=== PATIENT | male | born 1970 | race Caucasian/White ===

== ENCOUNTER 2022-06-20 09:26 | Emergency (ER) | payer OTHER, SELFPAY ==
[2022-06-20] VITALS (14 sets, daily range): BP systolic 128–151; BP diastolic 64–86; PULSE 78–112; RESP 14–16; TEMP 36.7; O2SAT 94–99
--- NOTE | ~2022-06-20 | CT_ITS ---
EXAMINATION: CT lumbar spine wo con DATE: 06/20/2022 11:50 INDICATION: Low back pain. Lumbar stenosis. TECHNIQUE: Computed tomography (CT) of the lumbar spine was performed without intravenous contrast. A utomated exposure control and iterative reconstruction technique were employed. The dose-length produ ct was 1442.30 mGy-cm. COMPARISON: None FINDINGS: Bone alignment is normal. Vertebral body heights are normal. There is mildly decreased disc height at L3-L4. The following disc levels are specifically discussed: L1-L2: The disc does not extend beyond the endplate margin. There is mild bilateral facet joint osteo arthritis. There is no neural foraminal stenosis. There is no central canal stenosis. L2-L3: The disc does not extend beyond the endplate margin. There is mild bilateral facet joint osteo arthritis. There is no neural foraminal stenosis. There is no central canal stenosis. L3-L4: The disc is bulging. There is mild bilateral facet joint osteoarthritis. There is mild bilater al neural foraminal stenosis. There is mild central canal stenosis. L4-L5: The disc is bulging. There is mild bilateral facet joint osteoarthritis. There is mild bilater al neural foraminal stenosis. There is no central canal stenosis. L5-S1: The disc does not extend beyond the endplate margin. There is severe bilateral facet joint ost eoarthritis. There is no neural foraminal stenosis. There is no central canal stenosis. IMPRESSION: 1. Mild lumbar spondylosis. Reviewed, dictated and finalized at location A. ER CUTTER IMPRESSION: 1. Mild lumbar spondylosis.
--- NOTE | 2022-06-20 11:11 | PC.NURSE ---
Patient report given to DENISA Gallego. All questions answered and care of patient transferred.
--- NOTE | 2022-06-20 11:36 | ED.GENADULT ---
HPI - General Adult General Chief complaint: Extremity Injury, Lower Stated complaint: L leg pain Time Seen by Provider: 06/20/22 09:34 History of Present Illness HPI narrative: 51-year-old male presents for evaluation of left thigh pain. Pain is described scribed as a burning [id number] initially started 1 week ago. It is localized to the left anterolateral thigh and worsens with movement. He has been taking prednisone and gabapentin without relief. Patient had previously been diagnosed with spinal stenosis but is unsure what level of his back this was found. He is able to ambulate but with difficulty. Related Data Allergies Allergy/AdvReac Type Severity Reaction Status Date / Time No Known Allergies Allergy Verified 06/20/22 09:37 Review of Systems Review of Systems: CONSTITUTIONAL: Denies fever, chills, or sweats. EYES: Denies visual changes, redness, or discharge. ENT: Denies rhinorrhea, congestion, sore throat, or otalgia. CARDIOVASCULAR: Denies chest pain, palpitations, or edema. RESPIRATORY: Denies cough or dyspnea. GASTROINTESTINAL: Denies abdominal pain, nausea, vomiting, or diarrhea. GENITOURINARY: Denies dysuria or hematuria. SKIN: Denies rash or itching. MUSCULOSKELETAL: Denies back pain, joint pain, or myalgia. NEUROLOGIC: Denies headache, numbness, or weakness. PSYCHIATRIC: Denies anxiety or depression. [facility] Past Medical History Medical History Chronic joint pain SANTOS (generalized anxiety disorder) Gastroesophageal reflux disease Hyperlipidemia Hypertension Testicular hernia Type 2 diabetes mellitus Surgical History Surgical History History of testicular surgery History of tonsillectomy Hx of basal cell carcinoma excision [place] teeth removed Family History Family History Mother Brain aneurysm Diabetes mellitus Father Heart disease Hypertension Cerebrovascular accident High cholesterol Sibling Diabetes mellitus Other Family history of coronary artery disease Social History Social History Smoking status: Never smoker Second hand tobacco smoke exposure: No Alcohol intake: current Alcohol use details: Social Substance use: current Substance use type: marijuana Other substance usage details: Only now and then. Gender identity (if verbalized by the patient): Male Spiritual care concerns: Yes Agree to blood products: Yes Exam Narrative: GENERAL: Well-appearing, well-nourished, and in no acute distress. HEAD: Normocephalic, atraumatic. EYES: PERRLA and EOMI. ENT: Nares clear, no rhinorrhea or epistaxis. Mucous membranes moist. NECK: Supple. CHEST: Clear to auscultation. No respiratory distress. HEART: Regular rate and rhythm. No murmur heard. Normal peripheral pulses. ABDOMEN: Soft, nontender, nondistended, normal active bowel sounds. EXTREMITIES: Normal range of motion. No edema. SKIN: Warm, dry, no rash. NEURO: No focal deficits. Alert and oriented x3. PSYCH: Normal mood and affect. Course Vital Signs Vital signs: Vital Signs Temperature 98.1 F 06/20/22 09:33 Pulse Rate 112 H 06/20/22 09:33 Respiratory Rate 14 06/20/22 09:33 Blood Pressure 151/78 H 06/20/22 09:33 Pulse Oximetry 99 06/20/22 09:33 Temperature 98.1 F 06/20/22 09:33 Pulse Rate 78 06/20/22 12:51 Respiratory Rate 16 06/20/22 12:51 Blood Pressure 142/86 H 06/20/22 12:51 Pulse Oximetry 98 06/20/22 12:51 Medical Decision Making MDM Narrative Medical decision making narrative: No back pain red flags. Patient?s pain is positional and localized to back without signs of cord compression or cauda equina. Normal nuerologic exams. No fever noted and no significant risk factors for osteomyelitis or
[2022-06-20] MEDS: diazePAM (*CRX) 5 MG TABLET PO (12:31)
== END 2022-06-20 12:58 | disposition home or self-care (01) ==
PROVIDERS: Emergency Provider Emergency Medicine; PCP Family Medicine
DX: M79.652 Pain in left thigh (principal); E78.5 Hyperlipidemia, unspecified; I10 Essential (primary) hypertension; E11.9 Type 2 diabetes mellitus without complications; K21.9 Gastro-esophageal reflux disease without esophagitis; Z85.828 Personal history of other malignant neoplasm of skin; M47.816 Spondylosis without myelopathy or radiculopathy, lumbar region; Z79.84 Long term (current) use of oral hypoglycemic drugs; Z79.85 Long-term (current) use of injectable non-insulin antidiabetic drugs
CPT/HCPCS: 72131; 99284; A9270

== ENCOUNTER 2024-02-10 08:26 | Day surgery (SDC) | payer OTHER, SELFPAY ==
[2024-01-05 14:12] VITALS: BMI 33.9
[2024-01-26 09:46] VITALS: BMI 35.2
--- NOTE | 2024-02-09 15:26 | PM.HPGS ---
History of Present Illness History of Present Illness Consent: Risks, benefits, and alternatives have been discussed and questions answered. Patient agrees to proceed with procedure. Chief complaint: Neoplasm screening Narrative: Sadiq Butler is a 53 year old male Colonoscopy with possible biopsy or polypectomy or cautery or injection of substances. Review of Systems Review of Systems: All systems reviewed & are unremarkable except as noted in HPI and below PMFSH Past Medical History Medical History Chronic joint pain Diabetic neuropathy associated with type 2 diabetes mellitus SANTOS (generalized anxiety disorder) Gastroesophageal reflux disease Hyperlipidemia Hypertension Peripheral neuropathy Spondylosis of lumbar spine Testicular hernia Type 2 diabetes mellitus Surgical History Surgical History History of testicular surgery History of tonsillectomy Hx of basal cell carcinoma excision [place] teeth removed Family History Family History Mother Brain aneurysm Diabetes mellitus Father Heart disease Hypertension Cerebrovascular accident High cholesterol Sibling Diabetes mellitus Other Family history of coronary artery disease Social History Social History Smoking status: Never smoker Second hand tobacco smoke exposure: No Alcohol intake: current Alcohol use details: Social Substance use: current Substance use type: marijuana Other substance usage details: daily Lack of Transportation: No Lack of Food: Never True Current Housing: I Have Housing Concerned About Future Housing: No Difficulty Paying Gas/Electric Bills: No Difficulty Paying for Meds: No Currently Unemployed: No Education: High School Diploma/GED Difficulty w/ Childcare or Family Care: No Living arrangements: with family Occupation/Education: occupation Gender identity (if verbalized by the patient): Male Sexual Orientation (if Verbalized by the Patient): Straight or Heterosexual Spiritual care concerns: No Agree to blood products: Yes Meds Home Medications and Allergies Home Medications Medication Instructions Recorded Confirmed Type blood-glucose meter,continuous #1 ea 07/30/21 12/29/23 Rx (Dexcom G6 Manager Intranet) blood-glucose sensor (Dexcom G6 #3 ea 05/19/22 12/29/23 Rx Sensor device) blood sugar diagnostic (OneTouch #100 strips 03/28/23 12/29/23 Rx Verio test strips) lancets #100 ea 03/28/23 12/29/23 Rx pantoprazole 40 mg tablet,delayed 40 mg PO DAILY #90 tabs 08/20/23 02/10/24 Rx release blood-glucose transmitter (Dexcom #1 ea 09/15/23 12/29/23 Rx G6 Transmitter device) citalopram 20 mg tablet See Rx Instructions .Route 09/15/23 02/10/24 Rx .COMPLEX #90 tabs dapagliflozin propanediol 10 mg 10 mg PO DAILY #90 tabs 09/18/23 02/10/24 Rx tablet (Farxiga) icosapent ethyl 1 gram capsule 2 g PO BID #360 caps 12/22/23 02/10/24 Rx (Vascepa) metformin 500 mg tablet,extended 2,000 mg PO QPM #360 tabs 12/22/23 02/10/24 Rx release 24 hr acetaminophen 300 mg-codeine 30 mg 1 tablet PO HS pain 01/26/24 02/10/24 History tablet ezetimibe 10 mg tablet 10 mg PO DAILY 01/26/24 02/10/24 History glipizide 10 mg tablet, extended 10 mg PO DAILY 01/26/24 02/10/24 History release 24 hr irbesartan 300 mg tablet 300 mg PO DAILY 01/26/24 02/10/24 History rosuvastatin 40 mg tablet 40 mg PO DAILY 01/26/24 02/10/24 History tirzepatide 2.5 mg/0.5 mL 2.5 mg subcut WEEKLY 01/26/24 02/10/24 History subcutaneous pen injector (Chanda) Allergies Allergy/AdvReac Type Severity Reaction Status Date / Time No Known Allergies Allergy Verified 02/10/24 08:38 Exam Resp: Auscultation: clear to auscultation bilaterally Cardio:
--- NOTE | 2024-02-10 06:44 | WPDANESEPPF ---
Anes - Initial Pre Proc Eval Procedure: Operation Date: 02/10/24 10:00 Proposed Procedures p Screening Colonoscopy - Jagdish Patrick MD Date/Time: 02/10/24 06:44 Surgeon: Jagdish Patrick MD Pre Op Diagnosis: Neoplasm screening Patient Data Age: 53 Gender: M Height: 1.83 m Weight: 118 kg Allergies Allergy/AdvReac Type Severity Reaction Status Date / Time No Known Allergies Allergy Verified 02/10/24 08:38 Home Medications Medication Instructions Recorded Confirmed Type blood-glucose meter,continuous #1 ea 07/30/21 12/29/23 Rx (Dexcom G6 Converter Supervisor) blood-glucose sensor (Dexcom G6 #3 ea 05/19/22 12/29/23 Rx Sensor device) blood sugar diagnostic (OneTouch #100 strips 03/28/23 12/29/23 Rx Verio test strips) lancets #100 ea 03/28/23 12/29/23 Rx pantoprazole 40 mg tablet,delayed 40 mg PO DAILY #90 tabs 08/20/23 02/10/24 Rx release blood-glucose transmitter (Dexcom #1 ea 09/15/23 12/29/23 Rx G6 Transmitter device) citalopram 20 mg tablet See Rx Instructions .Route 09/15/23 02/10/24 Rx .COMPLEX #90 tabs dapagliflozin propanediol 10 mg 10 mg PO DAILY #90 tabs 09/18/23 02/10/24 Rx tablet (Farxiga) icosapent ethyl 1 gram capsule 2 g PO BID #360 caps 12/22/23 02/10/24 Rx (Vascepa) metformin 500 mg tablet,extended 2,000 mg PO QPM #360 tabs 12/22/23 02/10/24 Rx release 24 hr acetaminophen 300 mg-codeine 30 mg 1 tablet PO HS pain 01/26/24 02/10/24 History tablet ezetimibe 10 mg tablet 10 mg PO DAILY 01/26/24 02/10/24 History glipizide 10 mg tablet, extended 10 mg PO DAILY 01/26/24 02/10/24 History release 24 hr irbesartan 300 mg tablet 300 mg PO DAILY 01/26/24 02/10/24 History rosuvastatin 40 mg tablet 40 mg PO DAILY 01/26/24 02/10/24 History tirzepatide 2.5 mg/0.5 mL 2.5 mg subcut WEEKLY 01/26/24 02/10/24 History subcutaneous pen injector (Chanda) Patient hx anesthesia problems: none Family hx anesthesia problems: none Results Review: All pre-operative results and documents have been reviewed as part of the pre-operative evaluation. [facility] Past Medical History Medical History Chronic joint pain Diabetic neuropathy associated with type 2 diabetes mellitus SANTOS (generalized anxiety disorder) Gastroesophageal reflux disease Hyperlipidemia Hypertension Peripheral neuropathy Spondylosis of lumbar spine Testicular hernia Type 2 diabetes mellitus Surgical History Surgical History History of testicular surgery History of tonsillectomy Hx of basal cell carcinoma excision [place] teeth removed Family History Family History Mother Brain aneurysm Diabetes mellitus Father Heart disease Hypertension Cerebrovascular accident High cholesterol Sibling Diabetes mellitus Other Family history of coronary artery disease Social History Social History Smoking status: Never smoker Second hand tobacco smoke exposure: No Alcohol intake: current Alcohol use details: Social Substance use: current Substance use type: marijuana Other substance usage details: Only now and then. Last use: daily Lack of Transportation: No Lack of Food: Never True Current Housing: I Have Housing Concerned About Future Housing: No Difficulty Paying Gas/Electric Bills: No Difficulty Paying for Meds: No Currently Unemployed: No Education: High School Diploma/GED Difficulty w/ Childcare or Family Care: No Living arrangements: with family Occupation/Education: occupation Gender identity (if verbalized by the patient): Male Sexual Orientation (if Verbalized by the Patient): Straight or Heterosexual Spiritual care concerns: No Agree to blood products: Yes Anes - Eval Final PreProcedure Day of Procedure
[2024-02-10 08:41] VITALS: BP 145/97; PULSE 107; RESP 16; TEMP 36.3; O2SAT 98
[2024-02-10] MEDS: LACTATED RINGERS 1,000 ML 150 ML IV CONT (08:42)
[2024-02-10 08:49] LABS: Glucose Point of Care 160 mg/dl (65-105)
[2024-02-10 09:27] VITALS: BP 106/73; PULSE 101; RESP 16; O2SAT 97
[2024-02-10 09:40] VITALS: BP 126/85; PULSE 92; RESP 16; O2SAT 99
[2024-02-10 09:50] VITALS: BP 144/91; PULSE 91; RESP 15; O2SAT 97
--- NOTE | 2024-02-10 11:11 | WPDANESPN ---
Anes - Prog Note Post-Op Date/Time: 02/10/24 11:11 Cardiovascular status: normal Respiratory status: normal Airway patency: baseline Mental status: baseline Post-Op hydration status: normal Vital Signs: Last Vital Signs Temp 36.3 C L 02/10/24 08:41 Pulse 91 02/10/24 09:50 Resp 15 02/10/24 09:50 BP 144/91 H 02/10/24 09:50 Pulse Ox 97 02/10/24 09:50 O2 Del Method Room Air 02/10/24 09:50 Pain Score (VAS): 0 I/O: Intake & Output 02/09/24 02/10/24 02/10/24 23:59 07:59 15:59 Intake Total 500 Balance 500 02/10/24 08:45 POC Capillary Glucose 160 H Post-procedural complaints: none Patient Feedback: Patient satisfied with anesthetic care. Other Findings: Patient vital signs back to baseline. Patient denies nausea and vomiting. Patient's pain under control. Patient OK for discharge.
== END 2024-02-10 10:07 | disposition home or self-care (01) ==
PROVIDERS: PCP Family Medicine; Visit Provider Internal Medicine Gastroenterology
PROC: 0DJD8ZZ Inspection of Lower Intestinal Tract, Via Natural or Artificial Opening Endoscopic (ICD-10-PCS; CPT 45378; principal; 2024-02-10 10:00)
DX: Z12.11 Encounter for screening for malignant neoplasm of colon (principal); D12.2 Benign neoplasm of ascending colon
CPT/HCPCS: 45385

== ENCOUNTER 2024-02-10 08:31 | Outpatient (NON) | payer OTHER, SELFPAY | END 2024-02-10 08:32 | disposition home or self-care (01) | LOC: ANHLAB 02-11 08:32 | PROVIDERS: PCP Family Medicine; Visit Provider Internal Medicine Gastroenterology | DX: Z12.11 Encounter for screening for malignant neoplasm of colon (principal) | CPT/HCPCS: 88305 ==

== ENCOUNTER 2024-03-04 12:06 | Outpatient (CLI) | payer OTHER, SELFPAY ==
[2024-03-04 13:02] LABS: Influenza A QL RT-PCR Negative (Negative); Influenza B QL RT-PCR Negative (Negative); RSV RNA, RT-PCR Negative (Negative); SARS-CoV-2 RNA PCR Negative (Negative)
== END 2024-03-04 12:07 | disposition home or self-care (01) ==
LOC: ANHLAB 12:07
PROVIDERS: PCP Family Medicine; Visit Provider Family Medicine
DX: J06.9 Acute upper respiratory infection, unspecified (principal); Z20.822 Contact with and (suspected) exposure to COVID-19
CPT/HCPCS: 87637

== ENCOUNTER 2024-08-10 09:03 | Outpatient (CLI) | payer OTHER, SELFPAY ==
--- OUTSIDE RECORDS SUMMARY | 2024-08-10 09:36 | XMS_ITS | Clinical Summary ---
Author Organization [facility] Address [address] [place] [address] Care Team Providers Care Ordnance Equipment Worker Name Role Phone Katharine Urrutia MD Primary Care Provider [phone] Allergies No known active allergies Medications citalopram (CeleXA) 20 mg tablet Take 20 mg by mouth daily 11/22/2015 Active Jardiance 25 mg tablet Take 25 mg by mouth daily 11/30/[address] (NexIUM) 40 mg capsule Take 40 mg by mouth daily 11/22/2015 Active ezetimibe (ZETIA) 10 mg tablet Take 10 mg by mouth daily 11/22/2015 Active glipiZIDE XL (GLUCOTROL XL) 10 mg 24 hr tablet 12/06/2020 Active irbesartan (AVAPRO) 300 mg tablet Take 300 mg by mouth daily 11/30/2020 Active metFORMIN XR (GLUCOPHAGE XR) 500 mg 24 hr tablet TAKE 4 TABLETS BY MOUTH EVERY EVENING WITH MEAL 11/30/[address] (PROTONIX) 40 mg EC tablet Take 40 mg by mouth daily 11/30/2020 Active phentermine (ADIPEX-P) 37.5 mg tablet Take 37.5 mg by mouth daily 12/14/2020 Active rosuvastatin (CRESTOR) 40 mg tablet Take 40 mg by mouth daily 11/30/2020 Active simvastatin (ZOCOR) 40 mg tablet TAKE ONE TABLET BY MOUTH EVERY EVENING 11/22/2015 Active topiramate (TOPAMAX) 25 mg tablet Take 25 mg by mouth daily 12/13/2020 Active acetaminophen-c odeine (TYLENOL with CODEINE #3) 300-30 mg per tablet Take 1 tablet by mouth every 4 (four) hours as needed for pain Active Active Problems Problem Noted Date Diagnosed Date Skin lesion 01/04/2021 Assessment & Plan (01/04/2021 11:54 AM CDT): We will set the patient up for excision of the basal cell carcinoma from the left lower leg. We discussed the biggest risk for his surgery is wound breakdown given the paucity of skin over the anterior quintana. He is in understanding. History of basal cell carcinoma excision 021 Overview (01/04/2021): Added automatically from request for surgery [id number] Assessment & Plan (01/25/2021 9:37 AM CDT): Surgical margins all negative. The 2 stay sutures were removed. Patient still has Steri-Strips in place a will fall off in another week or so. No submerging incisions for 2 weeks. No strenuous activities with the left leg for another 2 weeks as well. He will call us back with any further questions or concerns. Immunizations Name Administration Dates Next Due Pfizer SARS-CoV-2 Monovalent Vaccination (12+ Yrs) PURPLE 10/05/2020,09/07/2020 Surgical History Surgery Date Site/Laterality Comments TONSILLECTOMY HERNIA REPAIR testicular hernia Medical History Medical History Date Comments Type 2 diabetes mellitus (HCC) Hypertension Social History Tobacco Use Types Packs/Day Years Used Date Smoking Tobacco: Never Smokeless Tobacco: Never AUDIT-C Answer Date Recorded Q1: How often do you have a drink containing alc ohol? 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 Gender Identity Male 01/02/2021 3:45 PM CDT Sexual Orientation Gómez 01/02/2021 3: 45 PM CDT Obstetrics History Last Filed Vital Signs Vital Sign Reading Time Taken Comments Blood Pressure 134/86 01/25/2021 9:12 AM CDT Pulse 100 01/25/2021 9:12 AM CDT Temperature 35.8 ??C (96.4 ??F) 01/25/2021 9:12 AM CD T Respiratory Rate 18 01/15/2021 12:4 5 PM CDT Oxygen Saturation 98% 01/25/2021 9:12 AM CDT Inhaled Oxygen Concentration - - Weight 111.6 kg (246 lb 1.6 oz) 01/25/2021 9:12 AM CDT Height 182.9 cm (6') 01/25/2021 9:12 AM CDT Body Mass Index 33.38 01/25/2021 9:12 AM CDT Plan of Treatment Health Maintenance Due Date Last Done Comments Colon Cancer Screening-Colonoscopy 1970 Depression Screening 1970 Hepatitis C Screening 1970 Prostate Cancer Screening-PSA 1970 Hepatitis B Screening 1988 Regular Well Visit/Exam 18-64 1988 Zoster Vaccine (1 of 2) 2020 DTaP/Tdap/Td Vaccine (3 - Td or Tdap) 07/07/2022 07/07/2012, 04/03/2012, 01/07/2007 Covid-19 Vaccine (3 - season) 2024 10/05/2020, 09/07/2020 Influenza Vaccine (#1) 2024 5, 05/21/2014, 07/02/2013, Additional history exists Pneumococcal vaccine <65 Aged Out No longer eligible based on patient's age to [place] [address] [facility] [place] [facility] [place] [address] [facility] [place] [address] Care Teams Ordnance Equipment Worker Relationship Specialty Start Date End Date Katharine Urrutia MD PCP - General Family Medicine 12/06/20
--- OUTSIDE RECORDS SUMMARY | 2024-08-10 09:36 | XMS_ITS | Referral Summary ---
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
--- NOTE | 2024-08-10 11:00 | NEURO_ITS ---
Impression: # Complains of numbness of hands. longterm diabetic. ? # Normal Nerve Conduction Study. ? # No Carpal Tunnel Syndrome or ulnar neuropathy. ? # Could be related to small fiber neuropathy. ? # Clinical correlation recommended. Nerve Conduction Studies Anti Sensory Summary Table ?Stim Site NR Peak (ms) P-T Amp (?V) Site1 Site2 Delta-P (ms) Dist (cm) Josh (m/s) Left Median Anti Sensory (2-3nd Digit) Wrist ? 3.1 30.1 Wrist 2-3nd Digit 3.1 14.0 45 Wrist ? 3.1 18.0 Wrist 2-3nd Digit 3.1 14.0 45 Right Median Anti Sensory (2-3nd Digit) Wrist ? 3.4 21.3 Wrist 2-3nd Digit 3.4 14.0 41 Wrist ? 3.6 17.3 Wrist 2-3nd Digit 3.4 14.0 41 Left Radial Anti Sensory (Base 1st Digit) Wrist ? 2.1 14.1 Wrist Base 1st Digit 2.1 0.0 Right Radial Anti Sensory (Base 1st Digit) Wrist ? 2.5 9.9 Wrist Base 1st Digit 2.5 0.0 Left Ulnar Anti Sensory (5th Digit) Wrist ? 2.5 17.0 Wrist 5th Digit 2.5 14.0 56 Right Ulnar Anti Sensory (5th Digit) Wrist ? 2.7 25.6 Wrist 5th Digit 2.7 14.0 52 Motor Summary Table ?Stim Site NR Onset (ms) O-P Amp (mV) Site1 Site2 Delta-0 (ms) Dist (cm) Josh (m/s) Left Median Motor (Abd Poll Brev) Wrist ? 3.4 2.6 Elbow Wrist 5.7 32.0 56 Elbow ? 9.1 0.9 Right Median Motor (Abd Poll Brev) Wrist ? 3.4 1.9 Elbow Wrist 5.5 29.0 53 Elbow ? 8.9 2.1 Left Ulnar Motor (Abd Dig Minimi) Wrist ? 2.6 5.5 A Elbow Wrist 5.4 32.0 59 A Elbow ? 8.0 4.3 Right Ulnar Motor (Abd Dig Minimi) Wrist ? 3.2 4.6 A Elbow Wrist 5.6 31.0 55 A Elbow ? 8.8 3.2 F Wave Studies ?NR F-Lat (ms) L-R F-Lat (ms) Left Median (Mrkrs) (Abd Poll Brev) ? 31.06 0.02 Right Median (Mrkrs) (Abd Poll Brev) ? 31.08 0.02 Left Ulnar (Mrkrs) (Abd Dig Min) ? 30.35 2.44 Right Ulnar (Mrkrs) (Abd Dig Min) ? 27.92 2.44 EMG ?Side Muscle Nerve Root Ins Act Fibs Amp Dur Recrt Comment Right 1stDorInt Ulnar C8-T1 Nml Nml Nml Nml Nml Right Ext Indicis Radial (Post Int) C7-8 Nml Nml Nml Nml Nml Right Ext Digitorum Radial (Post Int) C7-8 Nml Nml Nml Nml Nml Right BrachioRad Radial C5-6 Nml Nml Nml Nml Nml Right PronatorTeres Median C6-7 Nml Nml Nml Nml Nml Right Abd Poll Brev Median C8-T1 Nml Nml Nml Nml Nml Right ABD Dig Min Ulnar C8-T1 Nml Nml Nml Nml Nml Left 1stDorInt Ulnar C8-T1 Nml Nml Nml Nml Nml Left Ext Indicis Radial (Post Int) C7-8 Nml Nml Nml Nml Nml Left Ext Digitorum Radial (Post Int) C7-8 Nml Nml Nml Nml Nml Left BrachioRad Radial C5-6 Nml Nml Nml Nml Nml Left PronatorTeres Median C6-7 Nml Nml Nml Nml Nml Left Abd Poll Brev Median C8-T1 Nml Nml Nml Nml Nml Left ABD Dig Min Ulnar C8-T1 Nml Nml Nml Nml Nml ?? MTDD
== END 2024-08-10 09:04 | disposition home or self-care (01) ==
PROVIDERS: PCP Family Medicine; Visit Provider Family Medicine
DX: R20.2 Paresthesia of skin (principal); M79.601 Pain in right arm; M79.602 Pain in left arm
CPT/HCPCS: 95886; 95911

== ENCOUNTER 2024-09-07 10:32 | Outpatient (CLI) | payer OTHER, SELFPAY | END 2024-09-07 10:33 | disposition home or self-care (01) | PROVIDERS: PCP Family Medicine; Visit Provider Plastic Surgery | DX: M65.4 Radial styloid tenosynovitis [de Quervain] (principal) | CPT/HCPCS: 73130 ==

== ENCOUNTER 2024-11-22 09:30 | Outpatient (CLI) | payer OTHER, SELFPAY ==
--- NOTE | 2024-11-22 09:42 | ECG_ITS ---
Test Date: 2024-11-22 09:58:57 Measurements Intervals [place] Rate: 85 P: 53 LA: 146 QRS: 3 QRSD: 85 T: 29 QT: 384 QTc: 457 Interpretive Statements SINUS RHYTHM No previous ECG available for comparison Electronically Signed On 11-22-2024 10:55:02 CDT by Kory Key M.D.
--- OUTSIDE RECORDS SUMMARY | 2024-11-22 09:56 | XMS_ITS | Clinical Summary ---
Author Organization [facility] Address [address] [place] [address] Care Team Providers Care Swedish Masseuse Name Role Phone Katharine Urrutia MD Primary Care Provider [phone] Allergies No known active allergies Medications citalopram [...] (01/04/2021): Added automatically from request for surgery [id number] Assessment & Plan (01/25/2021 9:37 AM CDT): Surgical margins all negative. The 2 stay sutures were removed. Patient still has Steri-Strips in place a will fall off in another week or so. No submerging incisions for 2 weeks. No strenuous activities with the left leg for another 2 weeks as well. He will call us back with any further questions or concerns. 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 Gender Identity Male 01/02/2021 3:45 PM CDT Sexual Orientation Gómez 01/02/2021 3: 45 PM CDT Obstetrics History Last Filed Vital Signs Vital Sign Reading Time Taken Comments Blood Pressure 134/86 01/25/2021 9:12 AM CDT Pulse 100 01/25/2021 9:12 AM CDT Temperature 35.8 C (96.4 F) 01/25/2021 9:12 AM CDT Respiratory Rate 18 01/15/2021 12:4 5 PM [...] patient's age to complete [place] [address] [facility] [place] [facility] [place] [address] [place] [address] [facility] [place] [address] Care Teams Swedish Masseuse Relationship Specialty Start Date End Date Katharine Urrutia MD PCP - General Family Medicine 12/06/20
--- OUTSIDE RECORDS SUMMARY | 2024-11-22 09:56 | XMS_ITS | Referral Summary ---
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
[2024-11-22 10:00] LABS: Anion Gap 10 mmol/L (4-12); Blood Urea Nitrogen 10 mg/dL (9-20); Calcium 8.9 mg/dL (8.4-10.2); Carbon Dioxide 25 mmol/L (22-30); Chloride 104 mmol/L (98-107); Estimated Glomerular Filt Rate > 60; Glucose 158 mg/dL (65-110); Potassium 4.3 mmol/L (3.4-5.0); Sodium 139 mmol/L (137-145)
== END 2024-11-22 09:31 | disposition home or self-care (01) ==
LOC: ANHLAB 09:32
PROVIDERS: PCP Family Medicine; Visit Provider Anesthesiology
DX: E11.9 Type 2 diabetes mellitus without complications (principal); Z01.818 Encounter for other preprocedural examination; I10 Essential (primary) hypertension; E78.5 Hyperlipidemia, unspecified
CPT/HCPCS: 36415; 80048; 93005

== ENCOUNTER 2024-11-25 09:10 | Day surgery (SDC) | payer OTHER, SELFPAY ==
[2024-11-08 09:08] VITALS: BMI 33.5
--- NOTE | 2024-11-25 06:59 | PM.HPGS ---
History of Present Illness History of Present Illness Chief complaint: LT Cubital Tunnel Syndrome, de Quervains Tenosyno. Narrative: Patient seen and examined in pre-operative holding area. No interval change in medical history or symptoms. Patient recalls previous discussion of benefits and alternatives to procedure. Continues to desire to proceed with left cubital tunnel release and left first extensor compartment release. Reviewed procedure, post-op expectations and risks including but not limited to bleeding, infection, injury to tendon/nerve/vessel, decreased hand function, stiffness, RSD, no change or worsening of symptoms. I discussed the possible use of assistants and their participation in the case. Patient stated understanding and signed the consent form wishing to proceed. Review of Systems Review of Systems: All systems reviewed & are unremarkable except as noted in HPI and below PMFSH Past Medical History Medical History Lt arm numbness Numbness and tingling in left hand Diabetic neuropathy associated with type 2 diabetes mellitus Spondylosis of lumbar spine Peripheral neuropathy Chronic joint pain SANTOS (generalized anxiety disorder) Gastroesophageal reflux disease Hyperlipidemia Hypertension Type 2 diabetes mellitus Testicular hernia Surgical History Surgical History Hx of basal cell carcinoma excision History of testicular surgery History of tonsillectomy [place] teeth removed Family History Family History Mother Brain aneurysm Diabetes mellitus Father Heart disease Hypertension Cerebrovascular accident High cholesterol Sibling Diabetes mellitus Other Family history of coronary artery disease Social History Social History Smoking status: Never smoker Second hand tobacco smoke exposure: No Alcohol intake: current Drinks per week: 2 Alcohol use details: Social Substance use: current Substance use type: marijuana Other substance usage details: daily Lack of Transportation: No Lack of Food: Never True Current Housing: I Have Housing Concerned About Future Housing: No Difficulty Paying Gas/Electric Bills: No Difficulty Paying for Meds: No Currently Unemployed: No Education: High School Diploma/GED Difficulty w/ Childcare or Family Care: No Living arrangements: with family Occupation/Education: occupation Gender identity (if verbalized by the patient): Male Sexual Orientation (if Verbalized by the Patient): Straight or Heterosexual Spiritual care concerns: No Agree to blood products: Yes Meds Home Medications and Allergies Home Medications Medication Instructions Recorded Confirmed Type blood-glucose,packaging specialist,cont #1 ea 07/30/21 06/15/24 Rx (Dexcom G6 Video Poker Floorman) blood sugar diagnostic (OneTouch #100 strips 03/28/23 06/15/24 Rx Verio test strips) lancets #100 ea 03/28/23 06/15/24 Rx blood-glucose transmitter (Dexcom #1 ea 09/15/23 06/15/24 Rx G6 Transmitter device) glipizide 10 mg tablet, extended 10 mg PO DAILY #90 tabs 04/09/24 11/25/24 Rx release 24 hr rosuvastatin 40 mg tablet 40 mg PO DAILY #90 tabs 05/18/24 11/25/24 Rx ezetimibe 10 mg tablet 10 mg PO DAILY #90 tabs 06/26/24 11/25/24 Rx metformin 500 mg tablet,extended 2,000 mg (4 x 500 mg) PO QPM #360 06/26/24 11/25/24 Rx release 24 hr tabs icosapent ethyl 1 gram capsule 2 g (2 x 1 gram) PO BID #360 caps 07/01/24 11/25/24 Rx (Vascepa) blood-glucose sensor (Dexcom G6 #3 ea 08/31/24 Rx Sensor device) citalopram 20 mg tablet See Rx Instructions .Route 09/08/24 11/25/24 Rx .COMPLEX #90 tabs dapagliflozin propanediol 10 mg 10 mg PO DAILY #90 tabs 09/08/24 11/25/24 Rx tablet (Farxiga) irbesartan 300 mg tablet 300 mg PO DAILY #90 tabs 09/08/24 11/25/24 Rx pantoprazole 40 mg tablet,delayed 40 mg PO DAILY #90 tabs 09/08/24 11/25/24 Rx release acetaminophen 300 mg-codeine 30 mg 1 tablet PO Q6H PRN pain #90 tabs 10/08/24 11/25/24 Rx tablet tirzepatide 10 mg/0.5 mL 10 mg (0.5 mL) subcut WEEKLY #2 mL 11/09/24 11/25/24 Rx subcutaneous pen injector (Chanda) Allergies Allergy/AdvReac Type Severity Reaction Status Date / Time No Known Allergies Allergy Verified 11/25/24 09:25 Exam Narrative: unchanged Assessment and Plan Assessment and plan (1) De Quervain's tenosynovitis, left: Code(s): M65.4 - Radial styloid tenosynovitis [de Quervain] Status: Acute Assessment and Plan: cont as above (2) Entrapment of left ulnar nerve at elbow: Code(s): G56.22 - Lesion of ulnar nerve, left upper limb Status: Acute
--- NOTE | 2024-11-25 07:00 | W.PM.PROC2 ---
Procedure Note - Detailed Date of Procedure 11/25/24 Pre-op Diagnosis LT Cubital Tunnel Syndrome, leftde Quervains Tenosynovitis Post-op Diagnosis Same Procedure Performed left CuTR and left first extensor compartment release Surgeon Zuhair Bradford MD Demonstrator Sales curly lugo pa-c Anesthesia MAC Description of Procedure INFORMED CONSENT:The patient was seen and examined and marked in the pre-op area. The patient signed the consent form. PROCEDURE IN DETAIL: The patient taken back to OR on the stretcher in supine position. Time out performed with anesthesia, surgeon and staff agreeing on patient's name site and surgery to be performed SCDs were placed on the lower extremities and inflated A tourniquet was placed on {left} upper extremity and antibiotics given IV After anesthesia administered sedation I injected {10}cc 1%lido with epi and 0.5% marcaine plain at the operative sites The {left upper extremity} was prepped and draped in sterile fashion the {left upper extremity} was exsanguinated with Esmarch bandage and tourniquet inflated to 250mmHg I proceeded with making a longitudinal incision between two heads for flexor carpi ulnaris at end of {left} cubital tunnel with 15 blade scalpel. Littler scissors were used to spread down to FCU fascia. An incision was made in FCU fascia and ulnar nerve identified exiting cubital tunnel. I proceeded with complete retrograde release of the cubital tunnel including 7cm proximal for the intermuscular septum. The nerve appeared healthy with visible vaso nervorum. There was no subluxation on full elbow range of motion. I irrigated with normal saline and closure with 3-0 Vicryl for dermis and 4-0 Monocryl for subcuticular closure. Next I proceeded with making a longitudinal incision over the left 1st extensor compartment through skin and dermis with a 15 blade scalpel. Littler scissors were used to spread through subcutaneous tissue down to the extensor tendon sheath. The dorsal radial sensory nerve was identified and protected throughout the procedure. I used a 15 blade scalpel to make initial incision on the dorsal aspect of the 1st extensor compartment. Littler scissors were used to spread above it and below it proximally and distally completing the transection entirely. The APLwas noted to be within a separate subsheath which was also released completed. The APL and EPB tendons were inspected and free of masses and synovitis. I irrigated with normal saline and closure with 3-0 Vicryl for dermis and 4-0 Monocryl for subcuticular closure. The incisions were covered with Dermabond then 4x4s, yuko, and a posterior elbow splint for patient safety, security and comfort and secured with padmini bandages after the tourniquet was let down noting the hand was warm and well perfused. Patient awaken from anesthesia and transferred to recovery in stable condition Complications - none EBL- 1cc Disposition - home in stable conditions nilesh lugo pa-c was essential for positioning, retraction, closure and dressing placement G Billing Surgery - Charge Forward: Surgery Billing ([id number] same for nilesh wiseman )
[2024-11-25 09:27] VITALS: BP 134/86; PULSE 90; RESP 18; TEMP 36.4; O2SAT 98
[2024-11-25] MEDS: LACTATED RINGERS 1,000 ML 30 ML IV CONT (09:31)
[2024-11-25 09:40] LABS: Glucose Point of Care 153 mg/dl (65-105)
--- NOTE | 2024-11-25 10:17 | WPDANESEPPF ---
Anes - Initial Pre Proc Eval Procedure: Operation Date: 11/25/24 11:15 Proposed Procedures p Left Cubital Tunnel Release - Zuhair Bradford MD s Left First Extensor Compartment Release - Zuhair Bradford MD Date/Time: 11/25/24 10:17 Surgeon: Zuhair Bradford MD Pre Op Diagnosis: LT Cubital Tunnel Syndrome, de Quervains Tenosyno. Patient Data Age: 54 Gender: M Height: 1.83 m Weight: 112.3 kg Last Vital Signs Temp 36.4 C L 11/25/24 09:27 Pulse 90 11/25/24 09:27 Resp 18 11/25/24 09:27 BP 134/86 11/25/24 09:27 Pulse Ox 98 11/25/24 09:27 O2 Del Method Room Air 11/25/24 09:27 Allergies Allergy/AdvReac Type Severity Reaction Status Date / Time No Known Allergies Allergy Verified 11/25/24 09:25 Home Medications Medication Instructions Recorded Confirmed Type blood-glucose,warehouse receiver,cont #1 ea 07/30/21 06/15/24 Rx (Dexcom G6 Engine Test Cell Technician) blood sugar diagnostic (OneTouch #100 strips 03/28/23 06/15/24 Rx Verio test strips) lancets #100 ea 03/28/23 06/15/24 Rx blood-glucose transmitter (Dexcom #1 ea 09/15/23 06/15/24 Rx G6 Transmitter device) glipizide 10 mg tablet, extended 10 mg PO DAILY #90 tabs 04/09/24 11/25/24 Rx release 24 hr rosuvastatin 40 mg tablet 40 mg PO DAILY #90 tabs 05/18/24 11/25/24 Rx ezetimibe 10 mg tablet 10 mg PO DAILY #90 tabs 06/26/24 11/25/24 Rx metformin 500 mg tablet,extended 2,000 mg (4 x 500 mg) PO QPM #360 06/26/24 11/25/24 Rx release 24 hr tabs icosapent ethyl 1 gram capsule 2 g (2 x 1 gram) PO BID #360 caps 07/01/24 11/25/24 Rx (Vascepa) blood-glucose sensor (Dexcom G6 #3 ea 08/31/24 Rx Sensor device) citalopram 20 mg tablet See Rx Instructions .Route 09/08/24 11/25/24 Rx .COMPLEX #90 tabs dapagliflozin propanediol 10 mg 10 mg PO DAILY #90 tabs 09/08/24 11/25/24 Rx tablet (Farxiga) irbesartan 300 mg tablet 300 mg PO DAILY #90 tabs 09/08/24 11/25/24 Rx pantoprazole 40 mg tablet,delayed 40 mg PO DAILY #90 tabs 09/08/24 11/25/24 Rx release acetaminophen 300 mg-codeine 30 mg 1 tablet PO Q6H PRN pain #90 tabs 10/08/24 11/25/24 Rx tablet tirzepatide 10 mg/0.5 mL 10 mg (0.5 mL) subcut WEEKLY #2 mL 11/09/24 11/25/24 Rx subcutaneous pen injector (Mounjaro) Laboratory Tests 11/25/24 09:36 POC Capillary Glucose 153 H mg/dl (65-105) Patient hx anesthesia problems: none Family hx anesthesia problems: none Results Review: All pre-operative results and documents have been reviewed as part of the pre-operative evaluation. [facility] Past Medical History Medical History Lt arm numbness Numbness and tingling in left hand Diabetic neuropathy associated with type 2 diabetes mellitus Spondylosis of lumbar spine Peripheral neuropathy Chronic joint pain SANTOS (generalized anxiety disorder) Gastroesophageal reflux disease Hyperlipidemia Hypertension Type 2 diabetes mellitus Testicular hernia Surgical History Surgical History Hx of basal cell carcinoma excision History of testicular surgery History of tonsillectomy [place] teeth removed Family History Family History Mother Brain aneurysm Diabetes mellitus Father Heart disease Hypertension Cerebrovascular accident High cholesterol Sibling Diabetes mellitus Other Family history of coronary artery disease Social History Social History Smoking status: Never smoker Second hand tobacco smoke exposure: No Alcohol intake: current Drinks per week: 2 Alcohol use details: Social Substance use: current Substance use type: marijuana Other substance usage details: daily Lack of Transportation: No Lack of Food: Never True Current Housing: I Have Housing Concerned About Future Housing: No Difficulty Paying Gas/Electric Bills: No Difficulty Paying for Meds: No Currently Unemployed: No Education: High School Diploma/GED Difficulty w/ Childcare or Family Care: No Living arrangements: with family Occupation/Education: occupation Gender identity (if verbalized by the patient): Male Sexual Orientation (if Verbalized by the Patient): Straight or Heterosexual Spiritual care concerns: No Agree to blood products: Yes Anes - Eval Final PreProcedure Day of Procedure 11/25/24 10:17 Patient weight: obese Heart: regular rate and rhythm Lungs: clear to auscultation Airway: Mallampati scale class II Neurological: alert and oriented Last oral intake: >/= 8 hours ASA classification: III Emergent: no Anesthetic plan: proceed Anesthesia type and monitoring: general GIVS and standard monitoring Results Review: All pre-operative results and documents have been reviewed as part of the pre-operative evaluation. Informed Consent: The patient's anesthetic plan and its attendant risks and benefits were discussed with the patient/family/POA. Questions were solicited and answers provided to the satisfaction of the patient/family/POA.
[2024-11-25] MEDS: ceFAZolin SODIUM 2 GM/20 ML SW SYRINGE IV PUSH (11:12)
[2024-11-25] MEDS: LIDOCAINE 1% LOCAL INJ 20 ML VIAL 9 ML INFILTRATE (11:15)
[2024-11-25 11:42] VITALS: BP 127/81; PULSE 97; RESP 16; O2SAT 95
--- NOTE | 2024-11-25 11:46 | WPDANESPN ---
Anes - Prog Note Post-Op Date/Time: 11/25/24 11:46 Cardiovascular status: normal Respiratory status: normal Airway patency: baseline Mental status: baseline Post-Op hydration status: normal Vital Signs: Last Vital Signs Temp 36.4 C L 11/25/24 09:27 Pulse 90 11/25/24 09:27 Resp 18 11/25/24 09:27 BP 134/86 11/25/24 09:27 Pulse Ox 98 11/25/24 09:27 O2 Del Method Room Air 11/25/24 09:27 Pain Score (VAS): 0/10 11/25/24 09:36 POC Capillary Glucose 153 H Patient Feedback: Patient satisfied with anesthetic care.
[2024-11-25 12:10] VITALS: BP 129/88; PULSE 88; RESP 18; O2SAT 98
[2024-11-25 12:17] LABS: Glucose Point of Care 117 mg/dl (65-105)
== END 2024-11-25 12:26 | disposition home or self-care (01) ==
LOC: ASC 09:13
PROVIDERS: PCP Family Medicine; Visit Provider Plastic Surgery
PROC: (CPT 64718; principal; 2024-11-25 11:15)
PROC: (CPT 64718; 2024-11-25 11:15)
DX: M65.4 Radial styloid tenosynovitis [de Quervain] (principal); G56.22 Lesion of ulnar nerve, left upper limb
CPT/HCPCS: 64718; 25000